=== PATIENT | female | born 1980 | race Caucasian/White ===

== ENCOUNTER 2016-02-27 11:56 | Inpatient (IN) | payer SELFPAY ==
[~2016-02-27] VITALS: Ht 162.6 cm; Wt 72.6 kg
[2016-02-27] VITALS (13 sets, daily range): BP systolic 86–118; RESP 18; TEMP 98; Ht 162.6 cm; Wt 72.6 kg
[~2016-02-27 11:56] MED LIST: LIDOCAINE/EPI 1.5% MPF 30 ML VIAL EPIDURAL ONE
[2016-02-27] MEDS ORDERED: LACT RINGERS 1,000 ML IV SCH (13:15)
[2016-02-27] MEDS ORDERED: CEFAZOLIN (LD/OB) 100 ML IV PRN (14:10)
[2016-02-27] MEDS ORDERED: METOCLOPRAMIDE 10 MG/2 ML VIAL IV PUSH PRN (14:10)
[2016-02-27] MEDS ORDERED: ACETAMINOPHEN 325 MG TAB PO PRN (14:10)
[2016-02-27] MEDS ORDERED: PROMETHAZINE 25 MG/ML VIAL IV PRN (14:10)
[2016-02-27] MEDS ORDERED: ONDANSETRON 4 MG VIAL IV PUSH PRN (14:10)
[2016-02-27] MEDS ORDERED: FAMOTIDINE 20 MG TAB PO PRN (14:10)
[2016-02-27] MEDS ORDERED: FAMOTIDINE 20 MG INJ IV PRN (14:10)
[2016-02-27] MEDS ORDERED: ALU/MAG/SIM 30 ML UDC PO PRN (14:10)
[2016-02-27] MEDS ORDERED: OXYTOCIN 15 UNITS/250 ML NS 250 ML IV SCH (14:10)
[2016-02-27] MEDS: MISOPROSTOL 25 MCG/0.25 **QUARTER TAB PO SCH ×2 (15:00→18:00)
[2016-02-27] MEDS: MISOPROSTOL 25 MCG/0.25 **QUARTER TAB VAG SCH ×2 (15:00→18:00)
[2016-02-27] MEDS ORDERED: ROPIV/FENT 0.2%-2MCG/ML 100 ML EPIDURAL ONE (16:15)
[2016-02-27] MEDS ORDERED: FENTANYL 100 MCG/2 ML AMP ONE (16:16)
[2016-02-27] MEDS ORDERED: MIDAZOLAM 2 MG/2 ML INJ ONE (16:40)
[2016-02-27] MEDS ORDERED: LACT RINGERS 500 ML IV PRN (17:05)
[2016-02-27] MEDS ORDERED: ROPIV/FENT 0.2%-2MCG/ML 100 ML EPIDURAL SCH (17:05)
[2016-02-27] MEDS ORDERED: FENTANYL 100 MCG/2 ML AMP EPIDURAL ONE (17:05)
[2016-02-27] MEDS ORDERED: SODIUM CHLORIDE 0.9% 500 ML IV PRN (17:05)
[2016-02-27] MEDS ORDERED: MIDAZOLAM 2 MG/2 ML INJ IV ONE (17:05)
[2016-02-27] MEDS ORDERED: LACT RINGERS 500 ML IV ONE (17:05)
[2016-02-27] MEDS ORDERED: MISOPROSTOL 25 MCG/0.25 **QUARTER TAB ONE (19:26)
[2016-02-27] MEDS ORDERED: MISOPROSTOL 100 MCG TAB PO SCH (20:00)
[2016-02-27] MEDS ORDERED: **ONLY ANESTEHSIA MAY ORDER OPIATES WHILE ON EPIDURAL XX SCH (20:00)
[2016-02-27] MEDS ORDERED: MISOPROSTOL 100 MCG TAB ONE (20:04)
[2016-02-27] MEDS: OXYTOCIN 15 UNITS/250 ML NS 250 ML IV SCH ×2 (20:34→21:00)
[2016-02-27] MEDS ORDERED: ASTRINGENT MED PADS 40'S TOPICAL PRN (20:50)
[2016-02-27] MEDS ORDERED: DERMOPLAST SPRAY TOPICAL PRN (20:50)
[2016-02-27] MEDS ORDERED: OXYTOCIN 15 UNITS/250 ML NS 250 ML IV ONE (20:50)
[2016-02-27] MEDS ORDERED: MISOPROSTOL 100 MCG TAB PO ONE (20:50)
[2016-02-27] MEDS ORDERED: ZOLPIDEM 5 MG TAB PO PRN (20:50)
[2016-02-27] MEDS: Ibuprofen 600 MG TAB PO SCH (23:14)
[2016-02-28 01:45] VITALS: BP_SYST 101; RESP 18; TEMP 97.9
[2016-02-28 05:00] VITALS: BP_SYST 125; RESP 18; TEMP 97.7
[2016-02-28] MEDS: Ibuprofen 600 MG TAB PO SCH ×2 (05:05→11:41)
== END 2016-02-28 11:51 | disposition home or self-care (01) | DRG 775 ==
LOC: LD 13:15
PROVIDERS: ADMIT Obstetrics & Gynecology Reproductive Endocrinology; ATTEND Obstetrics & Gynecology Reproductive Endocrinology
PROC: 10E0XZZ Delivery of Products of Conception, External Approach (ICD-10-PCS; principal; 2016-02-27)
CPT/HCPCS: 85025; 86850; 86900; 86901